=== PATIENT | female | born 1970 | race Two or more races ===

== ENCOUNTER 2025-05-19 19:01 | Emergency (ER) | payer OTHER ==
[~2025-05-19] VITALS: Ht 162.6 cm; Wt 95.3 kg
[2025-05-19] MEDS ORDERED: AMLODIPINE-BEN1 EAC3 (19:19)
[2025-05-19] MEDS ORDERED: SYNTHROID112 MCG (19:19)
[2025-05-19] MEDS ORDERED: KETOROLAC TROMETHAMINE 30 MG VIAL IM ONE (20:45)
[2025-05-19] MEDS ORDERED: DICLOFENAC SODI50 MG PO (22:29)
== END 2025-05-19 22:46 ==
LOC: ER 19:01
DX: M65.272 Calcific tendinitis, left ankle and foot (principal); Z88.0 Allergy status to penicillin; Z91.041 Radiographic dye allergy status; Z85.3 Personal history of malignant neoplasm of breast; E03.8 Other specified hypothyroidism; I10 Essential (primary) hypertension